=== PATIENT | female | born 1980 | race Two or more races ===

== ENCOUNTER 2019-03-22 13:08 | Outpatient (CLI) ==
[2019-03-22] MEDS ORDERED: BIOT5TAB PO (13:31)
== END 2019-03-22 23:59 | disposition home or self-care (01) ==
LOC: STAR 13:08
PROVIDERS: ATTEND Obstetrics & Gynecology Female Pelvic Medicine and Reconstructive Surgery
DX: Z02.9 Encounter for administrative examinations, unspecified (principal)

== ENCOUNTER 2019-04-01 09:09 | Day surgery (SDC) | payer OTHER ==
[~2019-04-01] VITALS: Ht 170.2 cm; Wt 105.0 kg
[~2019-04-01 09:09] MED LIST: BIOT5TAB PO; BUPIVACAINE/PF 0.25% ONE; EPINEPHRINE 1 MG/ML, 1ML ONE; GENTAMICIN 80 MG/2 ML ONE; VANCOMYCIN 500 MG ONE
[2019-04-01] MEDS ORDERED: ACETAMINOPHEN 500 MG TABLET PO STA (09:46)
[2019-04-01] MEDS ORDERED: ONDANSETRON ODT 8 MG PO STA (09:46)
[2019-04-01] MEDS ORDERED: SCOPOLAMINE PATCH, 1.5MG PATCH.TD72 TD STA (09:46)
[2019-04-01] MEDS ORDERED: GABAPENTIN 300 MG CAPSULE PO STA (09:46)
[2019-04-01] MEDS ORDERED: LACTATED RINGERS 1,000 ML IV SCH (09:54)
[2019-04-01] MEDS ORDERED: LIDOCAINE-MPF 1%, 2ML ONE (09:57)
[2019-04-01] MEDS ORDERED: LIDOCAINE-MPF 1%, 2ML INFIL ONE (10:00)
[2019-04-01] MEDS ORDERED: MIDAZOLAM 1 MG/ML, 2ML ONE (10:02)
[2019-04-01] MEDS ORDERED: PROPOFOL 10 MG/ML, 20ML ONE (10:02)
[2019-04-01 10:03] LABS: HCG UR SG 1.025 (1.003-1.030)
[2019-04-01] MEDS ORDERED: LIDOCAINE-MPF 2% ,5ML ONE ×2 (10:03)
[2019-04-01] MEDS ORDERED: ROCURONIUM 10MG/ML,5ML ONE (10:03)
[2019-04-01] MEDS ORDERED: CEFAZOLIN 1,000 MG ONE ×2 (10:03)
[2019-04-01] MEDS ORDERED: KETOROLAC 30 MG/1 ML ONE (10:04)
[2019-04-01] MEDS ORDERED: DEXAMETHASONE 4 MG/ML, 1ML ONE ×2 (10:04)
[2019-04-01] MEDS ORDERED: METOCLOPRAMIDE 5 MG/ML, 2ML ONE (10:04)
[2019-04-01] MEDS ORDERED: FENTANYL PF 100 MCG/2ML IV PRN (10:30)
[2019-04-01] MEDS ORDERED: LABETALOL 5MG/ML, 20ML IV PRN (10:30)
[2019-04-01] MEDS ORDERED: LORazepam 2 MG/ML, 1ML IVPush PRN (10:30)
[2019-04-01] MEDS ORDERED: MEPERIDINE/PF 25MG/ML,1ML IVPush PRN (10:30)
[2019-04-01] MEDS ORDERED: DIPHENHYDRAMINE 50 MG/ML, 1ML IVPush PRN (10:30)
[2019-04-01] MEDS ORDERED: ONDANSETRON 2MG/ML, 2ML IV PRN (10:30)
[2019-04-01] MEDS ORDERED: HYDROmorphone 2 MG/ML, 1ML IVPush PRN (10:30)
[2019-04-01] MEDS ORDERED: hydrALAzine 20 MG/ML, 1ML IV PRN (10:30)
[2019-04-01] MEDS ORDERED: MAGNESIUM SULFATE 1 GM/2 ML ONE (12:33)
[2019-04-01] MEDS ORDERED: GLYCOPYRROLATE 0.2MG/1ML, 5ML ONE (12:33)
[2019-04-01] MEDS ORDERED: NEOSTIGMINE 1 MG/ML, 10ML ONE (12:33)
[2019-04-01] MEDS ORDERED: FUROSEMIDE 20 MG/2 ML ONE (13:38)
[2019-04-01] MEDS ORDERED: MEPERIDINE/PF 25MG/ML,1ML ONE (14:27)
[2019-04-01] MEDS ORDERED: OXYcodone 5 MG/5 ML ORAL.SOL UDC ONE ×2 (14:27→14:51)
[2019-04-01] MEDS: OXYcodone 5 MG/5 ML ORAL.SOL UDC PO PRN ×2 (14:34→14:52)
[2019-04-01] MEDS ORDERED: FENTANYL PF 100 MCG/2ML ONE (14:43)
== END 2019-04-01 17:55 | disposition home or self-care (01) ==
LOC: OUT 09:09
PROVIDERS: ATTEND Obstetrics & Gynecology Female Pelvic Medicine and Reconstructive Surgery
DX: N92.1 Excessive and frequent menstruation with irregular cycle (principal); N94.6 Dysmenorrhea, unspecified; D25.1 Intramural leiomyoma of uterus; N80.0 Endometriosis of uterus; N81.89 Other female genital prolapse; N72 Inflammatory disease of cervix uteri; N88.8 Other specified noninflammatory disorders of cervix uteri; N81.11 Cystocele, midline; N81.6 Rectocele; N39.3 Stress incontinence (female) (male); N94.10 Unspecified dyspareunia; G43.909 Migraine, unspecified, not intractable, without status migrainosus; E66.01 Morbid (severe) obesity due to excess calories; Z88.0 Allergy status to penicillin
CPT/HCPCS: 57265; 57282; 57288; 58552; 81025; 88307; C1771; J0171; J0690; J1100; J1580; J1885; J1940; J2175; J2250; J2704; J2710; J2765; J3010; J3370; J3475; J3490; J7120; Q0162